=== PATIENT | female | born 1970 | race Caucasian/White ===

== ENCOUNTER → 2023-11-25 17:07 | Outpatient (REF) | payer BC, SELFPAY | LOC: WDC 17:07 | PROVIDERS: ATTENDING PHYSICIAN Family Medicine | DX: Z12.31 Encounter for screening mammogram for malignant neoplasm of breast (principal) | CPT/HCPCS: 77063; 77067 ==

== ENCOUNTER 2024-05-09 13:44 | Emergency (ER) | payer BC, SELFPAY ==
[2024-05-09 13:54] VITALS: BP 145/91
--- NOTE | 2024-05-09 14:42 | ED.CVA ---
History of Present Illness
General
Chief Complaint: CVA/TIA Symptoms
Source: patient
Exam Limitations: none
Time Seen by Provider: 05/09/24 14:26
Nursing documentation reviewed up to this point in time: agreed with
Onset of Stroke Symptoms
Onset of symptoms known: Yes
Date of onset of symptoms: 05/06/24
History of Present Illness
History of Present Illness:
54 yo female presents to the emergency department c/o right facial droop and numbness for the past 3 to 4 days. She has been drooling on the right side when she drinks. Denies any weakness. She went to urgent care today and they cleaned out her
ears and referred her to the emergency department due to the facial droop.
Past History
Past History
ED Past Medical History: NIDDM
ED Past Surgical History: None
Social History
Tobacco: Non-smoker
Personal:
Living: with family
Review of Systems
Review of Systems
Allergies reviewed?: Yes
All Other Systems: Not applicable
Constitutional: Reports no symptoms
EENT: Reports tearing and other (Right facial droop)
Respiratory: Reports no symptoms
Cardiac: Reports no symptoms
ABD/GI: Reports no symptoms
: Reports no symptoms
Musculoskeletal: Reports no symptoms
Skin: Reports no symptoms
Neurological: Reports no symptoms
Endocrine: Reports no symptoms
Hematologic/Lymphatic: Reports no symptoms
Psychiatric: Reports no symptoms
Phy Exam
Physical Exam
Physical Exam:
Physical Exam
General: no apparent distress, not acutely ill
Neck: supple. no meningeal signs. normal posterior pharynx
Heart: s1/s2 regular rate and rhythm, no murmur. equal radial
pulses.
HEENT: Pupils equal round reactive to light, EOMI, right facial droop
Lungs: no acute respiratory distress. clear bilaterally
Abdomen: normal bowel sounds. not tender. no CVAT
Neuro: alert and oriented. no focal neurological deficits cranial nerves II through XII intact
Skin: no rash
Psychiatric: well kept. interactive and cooperative
Extremities: no edema. no calf tenderness. negative homans. good distal pulses
Course
Orders/Labs/Results
Orders:
Orders
05/09/24 14:41
CT Head W/o Iv Contrast Urgent
Comment:
Reason For Exam: right facial droop
05/09/24 15:04
Lyme Progressive Urgent
05/09/24 15:05
Complete Blood Count/With Diff Urgent
Comprehensive Metabolic Panel Urgent
Abnormal Lab Results
05/09/24
15:05
Hct 36.6 L %
(37.0-47.0)
05/09/24 15:05
05/09/24 15:05
Vital Signs
Initial and Last Documented VS:
Initial Vital Signs
Temp Pulse Resp BP Pulse Ox
98.6 F 93 18 145/91 99
05/09/24 13:54 05/09/24 13:54 05/09/24 13:54 05/09/24 13:54 05/09/24 13:54
Last Documented Vital Signs
Temp Pulse Resp BP Pulse Ox
98.6 F 73 18 129/73 100
05/09/24 13:54 05/09/24 16:06 05/09/24 13:54 05/09/24 16:06 05/09/24 16:06
MDM/Problems Addressed
Differential Diagnosis Includes:
cva, campbell's palsy, brain tumor, Lyme disease
MDM/Problems Addressed:
54-year-old female with right-sided Campbell's palsy. CT head normal. Treat with prednisone and valacyclovir. Follow-up primary care.
*Radiology
Radiology exam reviewed: radiology read reviewed (CT head normal)
*Pulse Oximetry
Patient hypoxic: no
*Critical Care Note
Total Time (30-74mins, 75-104mins- exclusive of procedures): Not Applicable
Patient Management
Social determinants of health affecting care: Living situation
Escalation/DeEscalation of care consider admission/obs:
Admit not indicated
ED Attending Note
-
Portions of this chart may have been created with voice recognition software.� Occasional wrong word or��sound alike� substitutions may have occurred due to the inherent limitations of voice recognition software.
Discharge Plan
Departure
Patient Disposition: Home (Routine Discharge)
Date of Disposition: 05/09/24
Time of Disposition: 17:23
Patient with high blood pressure during this ER visit?: Yes
Condition: Good
Discharge Problem:
Campbell's palsy
Instructions: Campbell's Palsy (DC), BLOOD PRESSURE
Prescriptions:
New
valacyclovir 1 gram tablet
1,000 mg PO TID Qty: 20 0RF
prednisone 50 mg tablet
50 mg PO DAILY Qty: 5 0RF
No Action
acetaminophen-codeine 1 TABLET tablet
1 - 2 tab PO Q6HPRN PRN (Reason: severe pain) Qty: 10 0RF
Referrals:
Ana Mcgrath MD [Family Provider] -
Interventions
Interventions:
*Risk Screen - Suicide Last Done: 05/09/24 13:54
*General Assessment Last Done: 05/09/24 14:32
*Neglect/Abuse Screening Last Done: 05/09/24 13:54
ED- Fall Risk Assessment Last Done: 05/09/24 14:32
*ED COVID-19 Vaccine History Last Done: 05/09/24 13:59
ED- Cardiac Assessment Last Done: 05/09/24 14:32
ED- Neurological Assessment Last Done: 05/09/24 14:32
ED- Pulmonary Assessment Last Done: 05/09/24 14:32
Discharge Date and Time
Print Language: ARMENIAN
[2024-05-09 15:14] LABS: % Basophils 0.3 % (0-2); % Eosinophils 1.9 % (0-6); % Immature Granulocytes 0.3 % (0-0.5); % Lymphocytes 21.3 % (20.5-51.1); % Monocytes 5.9 % (1.7-9.3); % Neutrophils 70.3 % (42.2-75.2); Absolute Eosinophils 0.1 10^3/uL (0-0.7); Absolute Lymphocytes 1.2 10^3/uL (1.2-3.4); Absolute Monocytes 0.3 10^3/uL (0.1-0.6); Absolute Neutrophils 4.1 10^3/uL (1.4-6.5); Hematocrit 36.6 % (37.0-47.0); Hemoglobin 12.8 g/dL (12.0-16.0); Mean Corpuscular Hgb 29.7 pg (27.0-31.0); Mean Corpuscular Volume 84.9 fL (81.0-99.0); Mean Platelet Volume 9.7 fL (7.4-10.4); Nucleated Red Blood Cells % 0.3 %; Platelet Count 261 10^3/uL (130-400); Red Blood Cell Count 4.31 10^6/uL (4.20-5.40); Red Cell Dist. Width 13.2 % (11.5-14.5); White Blood Cell Count 5.8 10^3/uL (4.8-10.8)
[2024-05-09 15:25] LABS: ALT (SGPT) 19 U/L (0-35); AST (SGOT) 27 U/L (14-36); Albumin 4.4 g/dl (3.5-5.0); Alkaline Phosphatase 92 U/L (38-126); Blood Urea Nitrogen 17 mg/dl (7-17); Calcium 9.9 mg/dl (8.4-10.2); Carbon Dioxide 29 mmol/L (22-30); Chloride 106 mmol/L (98-107); Glucose 93 mg/dl (70-99); Potassium 4.5 mmol/L (3.5-5.1); Sodium 139 mmol/L (135-145); Total Bilirubin 0.3 mg/dl (0.2-1.3); Total Protein 6.9 g/dl (6.3-8.2); eGFR > 60.00
[2024-05-09 16:06] VITALS: BP 129/73
[2024-05-09] MEDS: VALTREX 1000 MG PO (17:37)
[2024-05-09] MEDS: DELTASONE 50 MG PO (17:37)
[2024-05-10 14:56] LABS: Lyme Antibody Screen, EIA Negative (Negative)
== END 2024-05-09 17:52 | disposition home or self-care (01) ==
LOC: EMR 13:44
PROVIDERS: EMERGENCY PHYSICIAN Emergency Medicine; FAMILY PHYSICIAN Family Medicine
DX: G51.0 Bell's palsy (principal); E11.9 Type 2 diabetes mellitus without complications
CPT/HCPCS: 99284; 70450; 80053; 85025; 86618

== ENCOUNTER → 2024-12-01 17:00 | Outpatient (REF) | payer BC, SELFPAY | LOC: WDC 17:00 | PROVIDERS: ATTENDING PHYSICIAN Family Medicine | DX: Z12.31 Encounter for screening mammogram for malignant neoplasm of breast (principal) | CPT/HCPCS: 77063; 77067 ==

== ENCOUNTER → 2025-03-01 14:55 | Outpatient (REF) | payer BC, SELFPAY | LOC: REG 14:55 | PROVIDERS: ATTENDING PHYSICIAN Family Medicine | DX: M72.2 Plantar fascial fibromatosis (principal); M79.671 Pain in right foot; M79.672 Pain in left foot | CPT/HCPCS: 73650 ==